=== PATIENT | female | born 1965 | race Two or more races ===

== ENCOUNTER → 2018-02-09 | Outpatient (CLI) | payer OTHER | END | disposition home or self-care (01) | LOC: MAMO-SONO 09:15 | DX: Z12.31 Encounter for screening mammogram for malignant neoplasm of breast (principal); N60.11 Diffuse cystic mastopathy of right breast; N60.12 Diffuse cystic mastopathy of left breast ==

== ENCOUNTER 2019-10-26 11:48 | Outpatient (CLI) | payer OTHER | END 2019-10-26 11:50 | disposition home or self-care (01) | LOC: MAMO-SONO 11:48 | DX: Z12.31 Encounter for screening mammogram for malignant neoplasm of breast (principal); Z87.898 Personal history of other specified conditions; N95.0 Postmenopausal bleeding; N60.11 Diffuse cystic mastopathy of right breast; N60.12 Diffuse cystic mastopathy of left breast ==

== ENCOUNTER 2021-03-02 13:59 | Outpatient (CLI) | payer OTHER | END 2021-03-02 14:14 | disposition home or self-care (01) | LOC: MAMO-SONO 13:59 | PROVIDERS: ATTEND Specialist | DX: Z12.31 Encounter for screening mammogram for malignant neoplasm of breast (principal); D25.1 Intramural leiomyoma of uterus ==

== ENCOUNTER 2022-12-22 13:45 | Outpatient (CLI) | payer OTHER | END 2022-12-22 13:54 | disposition home or self-care (01) | LOC: MAMO-SONO 13:45 | PROVIDERS: ATTEND Specialist | DX: N60.11 Diffuse cystic mastopathy of right breast (principal); N60.12 Diffuse cystic mastopathy of left breast ==